=== PATIENT | male | born 1975 | race Caucasian/White ===

== ENCOUNTER 2017-10-23 17:05 | Emergency (ER) | payer MEDICAID, OTHER ==
[~2017-10-23] VITALS: Ht 167.6 cm; Wt 122.0 kg
[2017-10-23 17:11] VITALS: BP 134/89
[2017-10-23 18:02] LABS: Basophils # (auto) 0.2 uL; Basophils % (auto) 1.2 % (0.0-2.0); Eosinophils # (auto) 0.3 uL; Eosinophils % (auto) 2.8 % (0.0-7.0); Hematocrit 49.4 % (41.0-53.0); Hemoglobin 16.7 g/dL (13.5-17.5); Lymphocytes # (auto) 2.8 uL; Lymphocytes % (auto) 23.4 % (10.0-50.0); Mean Corpuscular Hemoglobin 27.9 pg (28.0-32.0); Mean Corpuscular Hgb Conc. 33.7 g/dL (32.0-36.0); Mean Corpuscular Volume 82.8 fL (80.0-100.0); Monocytes # (auto) 0.7 uL; Monocytes % (auto) 5.5 % (0.0-12.0); Neutrophils # (auto) 8.1 uL; Neutrophils % (auto) 67.1 % (37.0-80.0); Nucleated Red Blood Cells % 0.7 %; Platelet Count (auto) 277 10^3/uL (140-450); Red Blood Cells 5.96 10^6/uL (4.5-5.90); Red Cell Distribution Width 13.5 % (11.8-14.3)
[2017-10-23 18:08] LABS: BUN/Creatinine Ratio 12.4; Calcium 9.3 mg/dL (8.5-10.1)
[2017-10-23 18:13] LABS: Bilirubin, Total 0.6 mg/dL (0.2-1.0); Total Protein 8.4 g/dL (6.4-8.2)
== END 2017-10-24 01:30 | disposition left against medical advice (07) ==
LOC: ER 17:19
DX: R73.9 Hyperglycemia, unspecified (principal); Z53.21 Procedure and treatment not carried out due to patient leaving prior to being seen by health care provider
CPT/HCPCS: 36415; 80053; 85025